=== PATIENT | female | born 1940 | race Caucasian/White ===

== ENCOUNTER 2018-06-10 08:42 | Day surgery (SDC) | payer MEDICARE, OTHER ==
[~2018-06-10 08:42] MED LIST: ACETAMINOPHEN 1,000 MG/100 ML BTL IV ONE
[2018-06-10] MEDS ORDERED: ONDANSETRON HCL IV 4 MG/2 ML VIAL IVP ONE (08:43)
[2018-06-10] MEDS ORDERED: ACETAMINOPHEN W/ CODEINE 300MG/30MG TABLET PO ONE (08:43)
[2018-06-10] MEDS ORDERED: DEXAMETHASONE 4 MG/ML 1ML VIAL IVP ONE (08:43)
[2018-06-10] MEDS ORDERED: LIDOCAINE 2% MDV (20MG/ML) 20ML VIAL IV ONE (08:43)
[2018-06-10] MEDS ORDERED: PROPOFOL 10 MG/ML VIAL IV ONE (08:43)
[2018-06-10] MEDS ORDERED: FENTANYL PF 100MCG/2ML VIAL IV ONE (08:43)
[2018-06-10] MEDS ORDERED: MIDAZOLAM HCL 2MG/2ML VIAL IV ONE (08:43)
--- NOTE | 2018-06-11 10:30 | Operative Note ---
DATE OF SURGERY: 06/10/2018 Surgeon: Matt Juan DO PREOPERATIVE DIAGNOSIS: Carpal tunnel syndrome of the left wrist. POSTOPERATIVE DIAGNOSIS: Carpal tunnel syndrome of the left wrist. OPERATION: Decompression left median nerve at the wrist using 3.5 loop magnification. DESCRIPTION OF PROCEDURE: This 77-year-old female was taken to the operating room and placed in the supine position on the operating room table where general anesthesia was induced. The left upper extremity was elevated. It was prepped with Hibiclens and draped in the usual sterile fashion. It was exsanguinated and the tourniquet inflated to 250 mmHg. A palmar incision was utilized following the hypothenar crease from the level of the base of the webspace of the thumb to the flexor crease of the wrist. Dissection was carried down through the skin and subcutaneous tissue. Palmar fascia was divided in line with the skin incision. Hemostasis obtained with the electrocautery. Palmar fascia divided to expose the transverse carpal ligament and flexor retinaculum. The latter was punctured and split to its proximal margin and then with the contents of the carpal tunnel under direct vision, the transverse carpal ligament was transected along its ulnar border. The radial flap was raised to expose the entire median nerve under the transverse carpal ligament. The recurrent motor branch of the median nerve was identified and found to be normal. Mild atrophy of the nerve was identified but was otherwise unremarkable. The wound was irrigated and the tourniquet released. Hemostasis obtained with the electrocautery. The wound closed with interrupted 6-0 nylon suture. Sterile dressings were applied with plaster splint immobilization with the wrist in slight dorsiflexion and the thumb in an adducted position. CC: Marisa Khanna MD [facility]y
== END 2018-06-10 11:20 | disposition home or self-care (01) ==
LOC: SUR 08:42
PROVIDERS: ATTEND Orthopaedic Surgery
DX: G56.02 Carpal tunnel syndrome, left upper limb (principal); E78.00 Pure hypercholesterolemia, unspecified; I47.1 Supraventricular tachycardia; K21.9 Gastro-esophageal reflux disease without esophagitis
CPT/HCPCS: 64721; 01810; J2405; J3010

== ENCOUNTER 2019-04-16 07:53 | Emergency (ER) | payer MEDICARE, OTHER ==
[2019-04-16 08:39] LABS: BASO % 0.3 % (0-6); EOS % 1.1 % (0-6); GRAN % 73.7 % (47-80); HEMATOCRIT 39.5 % (35.0-47.0); HEMOGLOBIN 12.5 gm/dl (11.6-16.0); LYMPH % 15.5 % (16-45); MEAN CELL VOLUME 93.2 fl (81-97); MEAN CORPUSCULAR HEMOGLOBIN 29.5 pg (27-33); MEAN CORPUSCULAR HGB CONC 31.6 g/dl (32-36); MEAN PLATELET VOLUME 9.1 fl (7.4-10.4); MONO % 9.4 % (0-9); PLATELET COUNT 209 K/uL (130-400); RED BLOOD COUNT 4.24 M/uL (3.80-5.40); WHITE BLOOD COUNT W/O DIFF 6.3 K/uL (4.2-12.2)
[2019-04-16 08:46] LABS: STREP A SCREEN NEGATIVE (NEGATIVE)
[2019-04-16 08:54] LABS: INFLUENZA A NEGATIVE (NEGATIVE); INFLUENZA B NEGATIVE (NEGATIVE)
--- NOTE | 2019-04-16 08:54 | RADIOLOGY REPORT ---
EXAMINATION: Two View Chest Radiographs EXAM DATE: 04/16/2019 8:50 AM TECHNIQUE: Frontal and lateral views INDICATION: cough COMPARISON: None ENCOUNTER: Not applicable FINDINGS: The heart, mediastinum, and pulmonary vasculature are normal. No lung consolidation or pleural effu sions are present. IMPRESSION: Normal chest. Dictated by: Ryan Samuel MD on 04/16/2019 8:53 AM. .
--- NOTE | 2019-04-16 08:59 | Emergency Department Record ---
History of Present Illness - General Chief complaint: Cold Stated complaint: ENT Time Seen by Provider: 04/16/19 07:56 Source: Patient Mode of Arrival: Ambulatory Limitations: No limitations - History of Present Illness Initial comments: pt has had a prod cough, sore throat, congestion and body aches for a week. pt has yellow, bloody rhinitis complaint: Sore throat, Other Onset/Timin -: Days(s) Location: Throat Severity scale (1-10): 8 Quality: Other Consistency: Constant Improves with: Other medication, Other Worsens with: Eating, Swallowing Associated Symptoms: Cough, Pain with swallowing, Rhinorrhea, Sore throat - Related Data Previous Rx's Medication Instructions Recorded Azithromycin [Zithromax] 250 mg PO DAILY #6 tablet 04/16/19 Gentamicin Sulfate 1 drop EACH EYE Q6HR #60 ml 04/16/19 Allergies Allergy/AdvReac Type Severity Reaction Status Date / Time Penicillins Allergy Severe HIVES Verified 04/16/19 07:56 oxycodone HCl [From Percocet] AdvReac HIVES Verified 04/16/19 07:56 tramadol AdvReac NAUSEA AND Verified 04/16/19 07:56 VOMITING Travel Screening - Travel/Exposure Within Last 30 Days Have you traveled within the last 30 days?: No - Travel/Exposure Within Last Year Have you traveled outside the [place] in the last year?: No - Additonal Travel Details Have you been exposed to anyone with a communicable illness?: No - Travel Symptoms Symptom Screening: None Review of Systems Reviewed: No additional complaints except as noted below Constitutional: Reports: As per HPI. Denies: Chills, Fever, Malaise, Night sweats, Weakness, Weight change Eyes: Reports: As per HPI. Denies: Eye discharge, Eye pain, Photophobia, Vision change ENT: Reports: As per HPI, Congestion, Throat pain. Denies: Dental pain, Ear pain, Epistaxis, Hearing loss Respiratory: Reports: As per HPI. Denies: Cough, Dyspnea, Hemoptysis, Stridor, Wheezes Cardiovascular: Reports: As per HPI. Denies: Arrhythmia, Chest pain, Dyspnea on exertion, Edema, Murmurs, Orthopnea, Palpitations, Paroxysmal nocturnal dyspnea, Rheumatic Fever, Syncope Endocrine: Reports: As per HPI. Denies: Fatigue, Heat or cold intolerance, Polydipsia, Polyuria Gastrointestinal: Reports: As per HPI. Denies: Abdominal pain, Constipation, Diarrhea, Hematemesis, Hematochezia, Melena, Nausea, Vomiting Genitourinary: Reports: As per HPI. Denies: Abnormal menses, Discharge, Dyspareunia, Dysuria, Frequency, Hematuria, Incontinence, Retention, Urgency Musculoskeletal: Reports: As per HPI. Denies: Arthralgia, Back pain, Gout, Joint swelling, Myalgia, Neck pain Skin: Reports: As per HPI. Denies: Bruising, Change in color, Change in hair/nails, Lesions, Pruritus, Rash Neurological: Reports: As per HPI. Denies: Abnormal gait, Confusion, Headache, Numbness, Paresthesias, Seizure, Tingling, Tremors, Vertigo, Weakness Psychiatric: Reports: As per HPI. Denies: Anxiety, Auditory hallucinations, Depression, Homicidal thoughts, Suicidal thoughts, Visual hallucinations Hematological/Lymphatic: Reports: As per HPI. Denies: Anemia, Blood Clots, Easy bleeding, Easy bruising, Swollen glands Past Medical History - SOCIAL HISTORY Smoking Status: Never smoker Alcohol Use: None Drug Use: None - RESPIRATORY Hx Respiratory Disorders: No - CARDIOVASCULAR Hx Cardio Disorders: Yes Hx Irregular Heartbeat: Yes (hx tachycardia resolved with Metoprolol had been discharged from cardio) - NEURO Hx Neuro Disorders: No - GI Hx GI Disorders: Yes Hx Reflux: Yes (on meds good control) - Hx Genitourinary Disorders: Yes Hx UTI: Yes (hx of) - ENDOCRINE Hx Endocrine Disorders: No - MUSCULOSKELETAL Hx Musculoskeletal Disorders: Yes 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) Hx Osteoporosis: No Comment:: hx of osteopenia - PSYCH Hx Psych Problems: Yes Hx Anxiety: Yes (on no meds) - HEMATOLOGY/ONCOLOGY Hx Hematology/Oncology Disorders: No Family Medical History Any Significant Family History?: Yes Hx Cancer: Mother, Brother/Sister *Cancer Comment: breast CA Hx Heart Disease: Brother/Sister *Heart Comment: heart attack Physical Exam - General General Appearance: Alert, Oriented x3, Cooperative, Mild distress - Head Head exam: Normal inspection - Eye Eye exam: Normal appearance, PERRL, Conjunctival injection, EOMI Pupils: Normal accommodation - ENT ENT exam: Normal exam, Mucous membranes moist, Normal external ear exam, Normal orophraynx, TM's normal bilaterally Ear exam: Normal external inspection. negative: External canal tenderness Nasal Exam: Normal inspection. negative: Discharge, Sinus tenderness Mouth exam: Normal external inspection, Tongue normal Teeth exam: Normal inspection. negative: Dental caries Throat exam: Tonsillar erythema. negative: Tonsillar exudate - Neck Neck exam: Normal inspection, Full ROM. negative: Tenderness - Respiratory Respiratory exam: Normal lung sounds bilaterally. negative: Respiratory distress - Cardiovascular Cardiovascular Exam: Normal rhythm, Normal heart sounds, Tachycardia - GI/Abdominal GI/Abdominal exam: Soft, Normal bowel sounds. negative: Tenderness - Rectal Rectal exam: Deferred - exam: Deferred - Extremities Extremities exam: Normal inspection, Full ROM, Normal capillary refill. negative: Tenderness - Back Back exam: Reports: Normal inspection, Full ROM. Denies: Muscle spasm, Rash noted, Tenderness - Neurological Neurological exam: Alert, CN II-XII intact, Normal gait, Oriented X3 - Psychiatric Psychiatric exam: Normal affect, Normal mood - Skin Skin exam: Dry, Intact, Normal color, Warm Course Vital Signs 04/16/19 08:11 Temperature 98.5 F Pulse Rate 110 H Respiratory 20 Rate Blood Pressure 130/81 Pulse Ox 97 - Reevaluation(s) Reevaluation #1: 04/16/19 09:09 though most of pts complaints have viral etiology there is likely the start of a bacterial component with the yellow rhinitis and prod cough Medical Decision Making - Lab Data Result diagrams: 04/16/19 08:34 Lab Results 04/16/19 04/16/19 Range/Units 08:34 08:34 WBC 6.3 (4.2-12.2) K/uL RBC 4.24 (3.80-5.40) M/uL Hgb 12.5 (11.6-16.0) gm/dl Hct 39.5 (35.0-47.0) % MCV 93.2 (81-97) fl MCH 29.5 (27-33) pg MCHC 31.6 L (32-36) g/dl RDW 13.0 (11.5-14.5) % Plt Count 209 (130-400) K/uL MPV 9.1 (7.4-10.4) fl Gran % 73.7 (47-80) % Lymphocytes % 15.5 L (16-45) % Monocytes % 9.4 H (0-9) % Eosinophils % 1.1 (0-6) % Basophils % 0.3 (0-6) % Absolute Neutrophils 4.60 Influenza Type A Ag Negative (NEGATIVE) Influenza Type B Ag Negative (NEGATIVE) Group A Strep Screen Negative (NEGATIVE) Disposition Disposition: Discharge Clinical Impression: Bronchitis Sinusitis Qualifiers: Sinusitis location: unspecified location Chronicity: acute Recurrence: non- recurrent Qualified Code(s): J01.90 - Acute sinusitis, unspecified Conjunctivitis Qualifiers: Conjunctivitis type: acute Acute conjunctivitis type: unspecified Laterality: bilateral Qualified Code(s): H10.33 - Unspecified acute conjunctivitis, bilateral Disposition: Home, Self-Care Condition: (1) Good Instructions: Acute Bronchitis (ED), Cellulitis (ED), Sinusitis (ED), Conjunctivitis (ED) Additional Instructions: follow up with family doctor. return sooner if worse. day quil and nyquil as needed Prescriptions: Gentamicin Sulfate 1 drop EACH EYE Q6HR #60 ml Azithromycin [Zithromax] 250 mg PO DAILY #6 tablet Forms: Patient Portal Access Quality - Quality Measures Quality Measures: N/A - Blood Pressure Screening Does Patient Have Any of the Following: No Blood Pressure Classification: Pre-Hypertensive BP Reading Systolic Measurement: 130 Diastolic Measurement: 81 Screening for High Blood Pressure: < Pre-Hypertensive BP, F/U Documented > [G8950] Pre-Hypertensive Follow-up Interventions: Follow-up with rescreen every year.
== END 2019-04-16 09:30 | disposition home or self-care (01) ==
LOC: ER 07:53
DX: J20.9 Acute bronchitis, unspecified (principal); J01.90 Acute sinusitis, unspecified; H10.33 Unspecified acute conjunctivitis, bilateral
CPT/HCPCS: 71046; 85025; 87400; 87880